=== PATIENT | female | born 1935 | race African-American/Black ===

== ENCOUNTER 2017-10-12 12:52 | Day surgery (SDC) | payer OTHER ==
[~2017-10-12] VITALS: Ht 170.2 cm; Wt 71.1 kg
[~2017-10-12 12:52] MED LIST: CALCIUM 500 MG1 EACH PO; COLCHICINE0.6 M1 PO; LIVALO4 MG PO; LO-DOSE ASPIRIN81 M2 PO; NABI650T PO; NEXIUM20 MG PO; PROCARDIA XL30 MG PO; ROCALTROL0.25 MCG PO; SENSIPAR30 MG PO; ZYLOPRIM100 MG PO
[2017-10-12 13:23] LABS: HEMATOCRIT 37.2 % (36.0-46.0); HEMOGLOBIN 12.1 G/DL (11.9-15.5); MCH 29.5 PG (29.0-34.0); MCHC 32.5 G/DL (30.0-36.0); MCV 90.7 FL (83-99); PLATELET COUNT 305 K/uL (156-360); RBC DIS.WIDTH-CV 13.5 % (11.8-14.6); RBC DIS.WIDTH-SD 45.1 % (39-53); WHITE BLOOD COUNT 7.9 K/uL (4.1-10.2)
[2017-10-12 13:44] VITALS: BP 185/85
[2017-10-12 13:45] LABS: CHLORIDE 104 MEQ/L (99-109); CREATININE 5.5 MG/DL (0.6-1.3); GFR ESTIMATE (CALCULATED) 10 mL/min/; GLUCOSE 148 mg/dL (70-99); POTASSIUM 4.3 MEQ/L (3.7-5.4); SODIUM 137 MEQ/L (136-147); UREA NITROGEN (BUN) 96 mg/dL (9-23)
[2017-10-12] MEDS ORDERED: NORCO 5/3251 TABLET PO (19:24)
[2017-10-12 21:58] LABS: HEMATOCRIT 24.5 % (36.0-46.0); HEMOGLOBIN 7.7 G/DL (11.9-15.5); MCV 93.9 FL (83-99)
[2017-10-12 22:54] LABS: INTER. NORMALIZED RATIO 1.1
[2017-10-12 22:57] LABS: PTT 22.4 SEC (25-37)
[2017-10-12 23:40] VITALS: BP 167/74
[2017-10-13 02:30] VITALS: BP 183/85
[2017-10-13 06:00] VITALS: BP 152/65
[2017-10-13 06:48] LABS: HEMATOCRIT 28.6 % (36.0-46.0); HEMOGLOBIN 9.2 G/DL (11.9-15.5); MCH 29.6 PG (29.0-34.0); MCHC 32.2 G/DL (30.0-36.0); PLATELET COUNT 244 K/uL (156-360); RBC DIS.WIDTH-CV 13.7 % (11.8-14.6); RBC DIS.WIDTH-SD 46.3 % (39-53); WHITE BLOOD COUNT 16.3 K/uL (4.1-10.2)
[2017-10-13 06:49] LABS: RED BLOOD COUNT 3.11 M/uL (3.80-5.20)
[2017-10-13 07:17] LABS: CHLORIDE 106 MEQ/L (99-109); CREATININE 5.4 MG/DL (0.6-1.3); GFR ESTIMATE (CALCULATED) 10 mL/min/; PHOSPHORUS 5.4 mg/dL (2.5-4.9); POTASSIUM 4.8 MEQ/L (3.7-5.4); SODIUM 136 MEQ/L (136-147); UREA NITROGEN (BUN) 92 mg/dL (9-23)
[2017-10-13 07:23] LABS: GLUCOSE 238 mg/dL (70-99)
[2017-10-13 07:25] LABS: MAGNESIUM 0.9 mg/dl (1.3-2.7)
[2017-10-13 08:55] VITALS: BP 146/79
[2017-10-13 12:00] VITALS: BP 183/76
[2017-10-13 16:18] VITALS: BP 160/70
[2017-10-14 12:20] LABS: ANTI-HEPATITIS B CORE (TOTAL) Nonreactive
[2017-10-14 12:21] LABS: HEPATITIS B SURFACE ANTIBODY Nonreactive; HEPATITIS B SURFACE ANTIGEN Nonreactive
== END 2017-10-13 19:20 | disposition home or self-care (01) ==
LOC: SDC 12:52 → 2SOUTH 18:43 → 2EAST 18:43 → ENRESERV 23:12 → 2EAST 23:42
PROVIDERS: Anesthesiology; Surgery
PROC: 0WHG4YZ Insertion of Other Device into Peritoneal Cavity, Percutaneous Endoscopic Approach (ICD-10-PCS; principal; 2017-10-12)
DX: I12.0 Hypertensive chronic kidney disease with stage 5 chronic kidney disease or end stage renal disease (principal); E11.22 Type 2 diabetes mellitus with diabetic chronic kidney disease; N18.6 End stage renal disease; K21.9 Gastro-esophageal reflux disease without esophagitis; E78.5 Hyperlipidemia, unspecified; G47.30 Sleep apnea, unspecified; E21.3 Hyperparathyroidism, unspecified; D64.9 Anemia, unspecified; M10.9 Gout, unspecified; I95.81 Postprocedural hypotension; Z87.891 Personal history of nicotine dependence; Z79.84 Long term (current) use of oral hypoglycemic drugs
CPT/HCPCS: 74176; 80048; 82948; 83735; 84100; 85014; 85018; 85027; 85610; 85730; 86704; 86706; 86850; 86900; 86901; 87340; C1750; G0378; J1100; J1170; J2405; J2597; J2710; J3010; J3475; J7050; J7643; S0020; S0074